=== PATIENT | male | born 1945 | race Caucasian/White ===

== ENCOUNTER → 2017-02-10 | Outpatient (CLI) | payer MEDICARE, OTHER ==
[~2017-02-10] MED LIST: ASPI-664 PO; ATOR40TA68 PO; CARV12.579 PO; CLOP75TA27 PO; DONE5TAB46 PO; FAMO-18 PO; GABA-526 PO; GABA100C PO; INSU100C SC; LANT3I SC; LAS20 PO; LEVE-5 PO; LOSA100T7 PO; PANT40TA3 PO; RANI150T9 PO; RIVA1PAT TD
--- NOTE | 2017-02-10 15:58 | RADRPT ---
PROCEDURE: XR Chest 2 Views CLINICAL INDICATION: Chronic kidney disease TECHNIQUE: Frontal and lateral views of the chest were obtained COMPARISON: 10/03/2012 FINDINGS: Stable sternotomy wires, CABG clips, and left chest wall AICD pacer device. The cardiac size is normal. Aortic vascular calcifications are demonstrated. No pulmonary vascular congestion is demonstrated. The lungs are clear. No consolidation, effusion, or pneumothorax. Mild degenerative changes of the visualized osseous structures are visualized. IMPRESSION: 1. No acute cardiopulmonary process. 2. Atherosclerosis. RPTAT:PP .Estevan Lazcano MD, MD Date Time Electronically viewed and signed by .Estevan Lazcano MD, MD on 02/10/2017 15:58 .V/
== END | disposition home or self-care (01) ==
LOC: LAB 11:01
PROVIDERS: ATTEND Internal Medicine Nephrology
DX: N18.9 Chronic kidney disease, unspecified (principal)
CPT/HCPCS: 71020

== ENCOUNTER → 2017-12-31 | Outpatient (CLI) | END | disposition home or self-care (01) ==

== ENCOUNTER 2018-07-02 05:57 | Inpatient (IN) | END 2018-07-15 11:45 | disposition EXP | DRG 23 ==